=== PATIENT | male | born 1955 | race Caucasian/White ===

== ENCOUNTER 2020-05-10 04:33 | Inpatient (IN) ==
[2020-05-10] MEDS ORDERED: IOPAMIDOL 100 ML BOTTLE IV ONE (04:34)
[2020-05-10] MEDS ORDERED: 0.9 % SODIUM CHLORIDE 2,000 ML IV ONE (04:47)
[2020-05-10] MEDS ORDERED: ONDANSETRON 4 MG/2 ML VIAL IV ONE (04:48)
[2020-05-10 05:01] LABS: POC Blood Urea Nitrogen 16 mg/dl (8-23); POC CO2 24 mmol/L (22-30); POC Calcium, Ionized 1.03 mmol/L (1.16-1.32); POC Chloride 100 mmol/L (96-108); POC Glucose, Random 113 mg/dL (70-105); POC Potassium 4.1 mmol/L (3.3-5.1); POC Sodium 138 mmol/L (133-145)
[2020-05-10 05:42] LABS: Basophils # (Auto) 0.02 K/mcL (0.00-0.30); Basophils % (Auto) 0.2 % (0.0-2.0); Eosinophils # (Auto) 0.09 K/mcL (0.00-0.70); Eosinophils % (Auto) 0.9 % (0.0-7.0); Granulocytes % (Auto) 71.9 % (38.0-78.0); Hematocrit 50.1 % (40.1-51.0); Hemoglobin 16.6 g/dL (13.7-17.5); Lymphocytes % (Auto) 16.9 % (15.5-49.0); Mean Cell Volume 89.6 fL (80.0-100.0); Mean Corpuscular HGB Conc 33.1 g/dL (31.0-36.0); Mean Platelet Volume 10.4 fL (7.4-10.4); Monocytes # (Auto) 1.01 K/mcL (0.10-0.90); Monocytes % (Auto) 10.1 % (1.0-12.0); Platelet Count 206 K/mcL (140-440); RBC 5.59 M/mcL (4.63-6.08); Red Cell Distribution Width 14.6 % (11.5-14.5)
[2020-05-10 05:59] LABS: ALT/SGPT 51 U/l (0-40); AST/SGOT 68 U/l (0-37); Albumin 3.5 gm/dL (3.2-5.2); Albumin/Globulin Ratio 0.9 (1.0-2.3); Alkaline Phosphatase 125 U/L (39-117); Bilirubin,Total 1.7 mg/dL (0.0-1.0); Blood Urea Nitrogen 15 mg/dl (8-23); Calcium 8.9 mg/dl (8.6-10.4); Carbon Dioxide 27 mmol/L (22-30); Chloride 99 mmol/L (96-108); Globulin 3.9 gm/dL (2.2-3.7); Glomerular Filtration Rate 79; Glucose 113 mg/dL (70-105)
--- NOTE | 2020-05-10 08:19 | Cat Scan Report ---
History: Upper abdominal pain with elevated liver enzymes and bilirubin TECHNIQUE: The patient was imaged following intravenous but no oral contrast scanning during the portal venous phase from above the diaphragm to the mid SI joints. Sagittal and coronal reformats were created. The radiation exposure was limited using dose reduction technology. FINDINGS: The liver and spleen are normal in size and homogeneous. The gallbladder wall is thickened and there is mild generalized stranding of the surrounding fat. In the neck of the gallbladder there is a cluster of densely calcified stones. The overall size of this cluster is 2 x 3 cm. Superior normal in caliber. There is no evidence of mass or inflammation the pancreas. The adrenals are normal and symmetric. Within a calyx in the middle third of the right kidney there is a nonobstructing 1.5 x 3 mm stone. In the cortex laterally in the lower pole of left kidney there is a 1 x 2 mm nonobstructing stone. An exophytic 2.1 x 2.6 cm cyst is present laterally in the middle third of the right kidney. No solid mass is present in either kidney. The ureters are decompressed. The bowel gas pattern is normal. The appendix is noninflamed. There are scattered plaques along the torres normal caliber abdominal aorta and iliac arteries. Inferior vena cava is normal. No adenopathy or mass are present. There is no ascites. Patient has ankylosis across the SI joints bilaterally. 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 There are bridging osteophytes at multiple levels in the spine. 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 Ma was called with the results Interpreted and Authenticated by: Saad Hong 05/10/20
--- NOTE | 2020-05-10 08:20 | Ultrasound Report ---
History: Right upper quadrant pain and cholelithiasis seen on preceding CT scan FINDINGS: The gallbladder contains at least two moderate size calcified stones. The largest is 2 cm. There is some sludge within the lumen of the gallbladder. Gallbladder wall is thickened and measures up to 5 mm. The patient was nontender while scanning over the gallbladder. No para cholecystic fluid collection is present. Common bile duct ranges from 4 to 6.6 mm in diameter. No obvious stone is seen within the duct. The pancreas and liver are suboptimally visualized due to patient body habitus and bowel gas. No ascites is present. IMPRESSION: Cholelithiasis and thickened gallbladder wall which may be seen with acute or chronic cholecystitis Interpreted and Authenticated by: Saad Hong 05/10/20
--- NOTE | 2020-05-10 08:23 | Emergency Department Note ---
Abdominal Pain HPI General Chief Complaint: Abdominal Pain Stated Complaint: abd. pain Time Seen by Provider: 05/10/20 07:30 Mode of arrival: ambulatory History of Present Illness HPI Narrative: Narrative: 64-year old patient presenting to the [facility] emergency department with a chief complaint of abdominal pain. Patient reports the pain is acute. Patient has had symptoms for several days. Patient noting pain is cramping. Patient reporting pain is moderate to severe. Patient with exacerbating factors of nothing. Patient with ameliorating factors of nothing. Patient with associated symptoms of may be some nausea. Patient without associated symptoms of vomiting, diarrhea, decreased appetite, fever, blood in stool, hematemesis, constipation, dysuria, frequency, hematuria, weight loss, cough, shortness of breath, orthopnea, exertional component. He was seen 2 days ago for the abdominal pain at that time declined laboratories and radiological evaluation he simply wanted his symptoms controlled. He did follow-up with his PCP yesterday and had laxative added to his regimen. However these interventions did not get him lasting relief and he presents today willing to do labs x-rays whatever it takes to get this sorted out. Related Data Home Medications Medication Instructions Recorded Confirmed docusate sodium 100 mg PO BID 05/10/20 05/10/20 Previous Rx's Medication Instructions Recorded dicyclomine 20 mg PO QID #10 tab 05/08/20 simethicone 250 mg PO BID PRN #10 cap 05/08/20 Allergies Allergy/AdvReac Type Severity Reaction Status Date / Time No Known Drug Allergies Allergy Unverified 05/08/20 04:56 Review of Systems ROS ROS Narrative: Narrative: All systems ED: reviewed and negative except as stated. [facility] Narrative Patient History Narrative: Narrative: Medical/Surgical/Family History All Active Problems (Updated 05/10/20 @ 08:40 by Chele Ma MD) Abdominal pain (Acute) Intractable abdominal pain (Acute) Cholelithiasis (Acute) Social History Smoking Status: Current every day smoker Exam Narrative Narrative: Narrative:Vital signs are assessed for evidence of hemodynamic instability. General: Alert, interactive, appropriate Head: Atraumatic, normocephalic Eyes: Extraocular movements intact, sclera anicteric, no conjunctival injection Ears: Pinnae normal, no discharge Mouth: Oral mucosa moist, no acute swelling or evidence of infection Nares: No nasal discharge, patent bilaterally Neck: Trachea midline, full range of motion Chest: Symmetrical chest wall rise, breathing normally; nonlabored respirations Abdomen: Patient primarily tenderness to the , patient without exam suggestive of peritonitis, nondistended, normoactive bowel sounds, no masses, no hepatosplenomegaly, no rebound, and no guarding Cardiovascular: Patient with excellent perfusion to the extremities; without tachycardia/bradycardia Skin: Patient without area of erythema, patient is without rash, no ascending lymphangitis or lymphadenopathy Extremities: Full range of motion joints, no obvious deformities Neuro: Alert, oriented x3, cranial nerves II through XII grossly intact, patient without lateralizing findings such as weakness, or abnormal reflexes Psychiatric: Normal affect, normal mood Course Vital Signs Vital signs: Vital Signs Temperature 98.3 F 05/10/20 04:35 Pulse Rate 77 05/10/20 04:35 Respiratory Rate 18 05/10/20 04:35 Blood Pressure 139/84 05/10/20 04:35 Pulse Oximetry (%) 95 05/10/20 04:35 Temperature 98.3 F 05/10/20 04:35 Pulse Rate 74 05/10/20 07:49 Respiratory Rate 18 05/10/20 04:35 Blood Pressure 143/110 05/10/20 07:49 Pulse Oximetry (%) 95 05/10/20 07:49 MDM MDM Narrative Medical decision making narrative: Narrative:Initial work-up for this issue included consideration for the following laboratory evaluation CBC, CMP, lipase, as well as imaging. CT evaluation reveals concern for possible gallbladder disease, ultrasound confirms this as well as support from blood laboratories. Attempted to control pain primarily with morphine sulfate. Patient with normal white blood cell count afebrile with excellent vital signs do not suspect acute infected gallbladder. Patient with intractable pain. He has tried outpatient pain management for this issue without success. Lab Data Result diagrams: 05/10/20 04:55 05/10/20 04:55 Labs: Lab Results 05/10/20 05/10/20 Range/Units 04:55 04:55 WBC 10.0 (4.50-11.00) K/mcL RBC 5.59 (4.63-6.08) M/mcL Hgb 16.6 (13.7-17.5) g/dL Hct 50.1 (40.1-51.0) % POC Hct 53.0 (41.0-55.0) % MCV 89.6 (80.0-100.0) fL MCH 29.7 (26.0-34.0) pg MCHC 33.1 (31.0-36.0) g/dL RDW 14.6 H (11.5-14.5) % Plt Count 206 (140-440) K/mcL MPV 10.4 (7.4-10.4) fL Gran % 71.9 (38.0-78.0) % Lymph % (Auto) 16.9 (15.5-49.0) % [place] % (Auto) 10.1 (1.0-12.0) % Eos % (Auto) 0.9 (0.0-7.0) % Baso % (Auto) 0.2 (0.0-2.0) % Gran # 7.21 (1.80-8.00) K/mcL Lymph # (Auto) 1.70 (1.50-4.80) K/mcL [place] # (Auto) 1.01 H (0.10-0.90) K/mcL Eos # (Auto) 0.09 (0.00-0.70) K/mcL Baso # (Auto) 0.02 (0.00-0.30) K/mcL POC Sodium 138 (133-145) mmol/L Sodium 137 (133-145) mmol/L POC Potassium 4.1 (3.3-5.1) mmol/L Potassium 4.0 (3.3-5.1) mmol/L POC Chloride 100 (96-108) mmol/L Chloride 99 (96-108) mmol/L Carbon Dioxide 27 (22-30) mmol/L POC Total CO2 24 (22-30) mmol/L Anion Gap 11.0 (8-16) POC BUN 16 (8-23) mg/dl BUN 15 (8-23) mg/dl Creatinine 1.0 (0.7-1.2) mg/dl POC Creatinine 1.0 (0.7-1.2) mg/dl GFR Calculation 79 Glucose 113 H (70-105) mg/dL POC Glucose 113 H (70-105) mg/dL Calcium 8.9 (8.6-10.4) mg/dl POC WB Ioniz Calcium 1.03 L (1.16-1.32) mmol/L Total Bilirubin 1.7 H (0.0-1.0) mg/dL AST 68 H (0-37) U/l ALT 51 H (0-40) U/l Alkaline Phosphatase 125 H (39-117) U/L Total Protein 7.4 (5.9-8.4) gm/dL Albumin 3.5 (3.2-5.2) gm/dL Globulin 3.9 H (2.2-3.7) gm/dL Albumin/Globulin Ratio 0.9 L (1.0-2.3) Discharge Plan Patient/Caregiver Discharge Instructions Pt seen by BINDERY OPERATOR/PA only: No Clinical Impression: Intractable abdominal pain, Cholelithiasis Patient Disposition: Xfer As Outpt/Obs ([facility]) Condition: Undetermined Prescriptions: No Action dicyclomine 20 mg tablet 20 mg PO QID Qty: 10 RF: 0 simethicone 125 mg capsule 250 mg PO BID PRN (Reason: abdominal distention) Qty: 10 RF: 0 docusate sodium 100 mg Capsule 100 mg PO BID RF: 0
[2020-05-10] MEDS ORDERED: 0.9 % SODIUM CHLORIDE 1,000 ML IV ONE (08:25)
[2020-05-10] MEDS ORDERED: ONDANSETRON 4 MG/2 ML VIAL IV PRN (08:25)
[2020-05-10] MEDS: DOCUSATE SODIUM 100 MG CAPSULE PO SCH ×2 (10:59→20:20)
--- NOTE | 2020-05-10 14:44 | General Surg History&Physical ---
HPI History of Present Illness Patient information: Note initiated : 05/10/20 at 2:41 pm Service Date, if different from initiated Date: [] Patient: Flex Victoria a 64 y/o M admitted on 05/10/20 for Abd Pain. Chief Complaint: [] History of present illness: Mr. Victoria is a 64 year old M admitted acute cholecystitis with cholelithiasis. The patient presented to the emergency room initially on 08 May 2020. At that time he complained of several hour history of diffuse upper abdominal pain with nausea and vomiting. He refused to have labs or x-rays done and only wished to have pain medication. He left without having any diagnostic studies completed. He continued to have severe pain over the next 2 days and returned earlier this morning because of severe pain. Labs reveal mild elevation in liver transaminases and ultrasound confirmed c holelithiasis with cholecystitis. Patient is admitted. He will be treated with antibiotics and scheduled for laparoscopic cholecystectomy tomorrow morning. Review of Systems All systems: reviewed and no additional remarkable complaints except as stated EENT Ears: Present decreased hearing (bilateral neurosensory hearing loss) Cardiovascular Cardiovascular: Present pedal edema; Absent chest pain at rest, chest pain with activity and dyspnea on exertion Respiratory Respiratory: Absent dyspnea on exertion Gastrointestinal Gastrointestinal: Present as per HPI Genitourinary Genitourinary: urinary frequency and urinary urgency Musculoskeletal Musculoskeletal: Present arthralgias, back pain, limited range of motion, muscle cramps, neck pain and radiating pain into limb Integumentary Integumentary: Absent pruritus and swelling Neurological Neurological: Present abnormal gait and abnormal hearing Psychiatric Psychiatric: Present abnormal sleep pattern Hematologic/Lymphatic Hematologic/Lymphatic: Absent easy bleeding, easy bruising and lymphadenopathy Allergic/Immunologic Allergic/Immunologic: Absent tongue swelling, throat swelling, itchy eyes, uticaria, wheezing and lip swelling PFSH PFSH Social History smoking status: Current every day smoker MEDS/ALLERGIES Home Medications and Allergies Home Medications Medication Instructions Recorded Confirmed Type dicyclomine 20 mg PO QID #10 tab 05/08/20 05/10/20 Rx simethicone 250 mg PO BID PRN #10 cap 05/08/20 05/10/20 Rx docusate sodium 100 mg PO BID 05/10/20 05/10/20 History Allergies Allergy/AdvReac Type Severity Reaction Status Date / Time No Known Drug Allergies Allergy Unverified 05/08/20 04:56 Physical Examination Vital Signs Vital signs: Temp Pulse Resp BP Pulse Ox 98.4 F 55 L 14 143/79 93 05/10/20 12:00 05/10/20 12:00 05/10/20 12:00 05/10/20 12:00 05/10/20 12:00 General physical appearance General physical exam: well developed, well nourished, moderate pain and obese Eyes Eye exam: PERRL and normal ocular movement; negative icteric ENT ENT exam: normal pinna, normal nares and decreased hearing (bilateral severe hearing loss) Head Head exam IM: Present atraumatic, normal inspection and normocephalic Neck Neck exam: no masses, no bruits, trachea midline, no lymphadenopathy and no venous distension; negative deviated trachea Cardiovascular Cardiovascular exam IM: Present normal rate and rhythm, RRR, +S1 and +S2; Absent JVD Respiratory Respiratory exam: normal expansion, normal respiratory effort, clear to percussion and clear to auscultation Abdomen Abdomen: Present soft and tender (epigastric and right upper quadrant tenderness with guarding) Integumentary Integumentary: Present no growths and other (stasis dermatitis bilateral lower extremities) Neurologic Neurologic: Present normal coordination and normal sensation Musculoskeletal Musculoskeletal: Present other (assisted gait with front-wheeled walker) Psychiatric Psychiatric: Present oriented to time, oriented to person, oriented to place, speech is normal, memory intact and other Results Labs Result diagrams: 05/10/20 04:55 05/10/20 04:55 Labs: Abnormal lab results 05/10/20 05/10/20 Range/Units 04:55 04:55 RDW 14.6 H (11.5-14.5) % [place] # (Auto) 1.01 H (0.10-0.90) K/mcL Glucose 113 H (70-105) mg/dL POC Glucose 113 H (70-105) mg/dL POC WB Ioniz Calcium 1.03 L (1.16-1.32) mmol/L Total Bilirubin 1.7 H (0.0-1.0) mg/dL AST 68 H (0-37) U/l ALT 51 H (0-40) U/l Alkaline Phosphatase 125 H (39-117) U/L Globulin 3.9 H (2.2-3.7) gm/dL Albumin/Globulin Ratio 0.9 L (1.0-2.3) Diabetes panel 05/10/20 Range/Units 04:55 Sodium 137 (133-145) mmol/L Potassium 4.0 (3.3-5.1) mmol/L Chloride 99 (96-108) mmol/L Carbon Dioxide 27 (22-30) mmol/L BUN 15 (8-23) mg/dl Creatinine 1.0 (0.7-1.2) mg/dl Glucose 113 H (70-105) mg/dL Calcium 8.9 (8.6-10.4) mg/dl AST 68 H (0-37) U/l ALT 51 H (0-40) U/l Alkaline Phosphatase 125 H (39-117) U/L Total Protein 7.4 (5.9-8.4) gm/dL Albumin 3.5 (3.2-5.2) gm/dL Calcium panel 05/10/20 Range/Units 04:55 Calcium 8.9 (8.6-10.4) mg/dl Albumin 3.5 (3.2-5.2) gm/dL Pituitary panel 05/10/20 Range/Units 04:55 Sodium 137 (133-145) mmol/L Potassium 4.0 (3.3-5.1) mmol/L Chloride 99 (96-108) mmol/L Carbon Dioxide 27 (22-30) mmol/L BUN 15 (8-23) mg/dl Creatinine 1.0 (0.7-1.2) mg/dl Glucose 113 H (70-105) mg/dL Calcium 8.9 (8.6-10.4) mg/dl Adrenal panel 05/10/20 Range/Units 04:55 Sodium 137 (133-145) mmol/L Potassium 4.0 (3.3-5.1) mmol/L Chloride 99 (96-108) mmol/L Carbon Dioxide 27 (22-30) mmol/L BUN 15 (8-23) mg/dl Creatinine 1.0 (0.7-1.2) mg/dl Glucose 113 H (70-105) mg/dL Calcium 8.9 (8.6-10.4) mg/dl Total Bilirubin 1.7 H (0.0-1.0) mg/dL AST 68 H (0-37) U/l ALT 51 H (0-40) U/l Alkaline Phosphatase 125 H (39-117) U/L Total Protein 7.4 (5.9-8.4) gm/dL Albumin 3.5 (3.2-5.2) gm/dL All other labs normal. A/P Assessment and plan (1) Cholelithiasis with cholecystitis without obstruction: Status: Acute Narrative A/P Narrative: patient is counseled for laparoscopic cholecystectomy. This will be performed tomorrow. He will be on antibiotics tonight. Time Spent With Patient Time: Total time spent is greater than 50% in coordination of care (as documente d) at patient's floor/unit and/or counseling patient:
[2020-05-10] MEDS ORDERED: oxyCODONE HCL 5 MG TABLET PO PRN (15:30)
[2020-05-10] MEDS: 0.9 % SODIUM CHLORIDE 1,000 ML IV SCH ×2 (15:30→23:26)
--- NOTE | 2020-05-10 15:54 | XRay Report ---
HISTORY: Preop for cholecystectomy FINDINGS: The lungs are clear. The heart, mediastinum, everardo and pleura are normal. No free intra-abdominal air is present. IMPRESSION: Normal chest. Interpreted and Authenticated by: Saad Hong 05/10/20
[2020-05-10 16:14] LABS: INR 1.1 (0.9-1.1); Prothrombin Time 14.4 sec (11.9-14.5)
[2020-05-10] MEDS: 0.9 % SODIUM CHLORIDE 10 ML SYRINGE IV SCH ×2 (16:33→20:20)
[2020-05-10] MEDS: PIPERACILLIN SODIUM/TAZOBACTAM 3.375 GM in DEXTROSE 5% IN WATER 50 ML IV SCH ×3 (17:02→23:25)
[2020-05-10 19:28] LABS: Appearance,Urine CLEAR; Color,Urine AMBER; Culture Indicated,Urine NO; Glucose,Urine (UA) NEGATIVE (NEG); Ictotest,Urine POS (NEG); Ketones,Urine 20 mg/dL (NEG); Leukocyte Esterase,Urine NEG /uL (NEG); Nitrate,Urine NEG (NEG); Protein,Urine NEG (NEG); Specific Gravity,Urine 1.034 (1.000-1.035); Urine Blood NEG mg/dL (<0.03)
[2020-05-10] MEDS: NICOTINE 21 MG PATCH TOPICAL SCH (20:09)
[2020-05-10] MEDS ORDERED: SENNOSIDES 1 TABLET PO SCH (21:00)
[2020-05-11] MEDS: PIPERACILLIN SODIUM/TAZOBACTAM 3.375 GM in DEXTROSE 5% IN WATER 50 ML IV SCH ×5 (05:24→23:26)
[2020-05-11] MEDS: 0.9 % SODIUM CHLORIDE 10 ML SYRINGE IV SCH ×3 (05:24→23:07)
[2020-05-11 06:52] LABS: Basophils # (Auto) 0.02 K/mcL (0.00-0.30); Basophils % (Auto) 0.2 % (0.0-2.0); Eosinophils # (Auto) 0.07 K/mcL (0.00-0.70); Eosinophils % (Auto) 0.8 % (0.0-7.0); Granulocytes % (Auto) 78.4 % (38.0-78.0); Hematocrit 49.4 % (40.1-51.0); Hemoglobin 15.9 g/dL (13.7-17.5); Lymphocytes # (Auto) 0.85 K/mcL (1.50-4.80); Lymphocytes % (Auto) 10.2 % (15.5-49.0); Mean Cell Volume 92.2 fL (80.0-100.0); Mean Corpuscular HGB Conc 32.2 g/dL (31.0-36.0); Monocytes # (Auto) 0.87 K/mcL (0.10-0.90); Monocytes % (Auto) 10.4 % (1.0-12.0); Platelet Count 197 K/mcL (140-440); RBC 5.36 M/mcL (4.63-6.08); Red Cell Distribution Width 14.6 % (11.5-14.5); WBC 8.3 K/mcL (4.50-11.00)
[2020-05-11] MEDS: 0.9 % SODIUM CHLORIDE 1,000 ML IV SCH (07:09)
[2020-05-11 07:18] LABS: Chloride 102 mmol/L (96-108)
[2020-05-11 07:22] LABS: ALT/SGPT 257 U/l (0-40); AST/SGOT 165 U/l (0-37); Albumin 2.9 gm/dL (3.2-5.2); Albumin/Globulin Ratio 0.7 (1.0-2.3); Alkaline Phosphatase 198 U/L (39-117); Bilirubin,Direct 4.7 mg/dL (0.0-0.3); Bilirubin,Total 5.1 mg/dL (0.0-1.0); Blood Urea Nitrogen 8 mg/dl (8-23); Calcium 8.6 mg/dl (8.6-10.4); Carbon Dioxide 25 mmol/L (22-30); Globulin 3.9 gm/dL (2.2-3.7); Glomerular Filtration Rate 94; Glucose 108 mg/dL (70-105); Lactate Dehydrogenase 248 U/L (94-250); Phosphorous 3.4 mg/dL (2.7-4.5); Triglycerides 66 mg/dl (<150); Uric Acid 3.2 mg/dL (2.5-8.0)
[2020-05-11] MEDS ORDERED: fentaNYL 100 MCG/2 ML VIAL IV ONE ×2 (09:08→11:09)
[2020-05-11] MEDS ORDERED: DEXAMETHASONE 10 MG/ML VIAL IV ONE (09:08)
[2020-05-11] MEDS ORDERED: SUCCINYLCHOLINE 20 MG/ML ML IV ONE (09:08)
[2020-05-11] MEDS ORDERED: ROCURONIUM 10 MG/ML ML IV ONE (09:08)
[2020-05-11] MEDS ORDERED: PROPOFOL 200 MG/20 ML VIAL IV ONE (09:08)
[2020-05-11] MEDS ORDERED: LIDOCAINE HCL/PF 100 MG/5 ML SYRINGE IV ONE (09:08)
[2020-05-11] MEDS ORDERED: KETAMINE 100 MG/ML ML IV ONE (09:08)
--- NOTE | 2020-05-11 10:52 | Brief Operative Note ---
Brief Operative Note Date of procedure: 05/11/20 Pre-op diagnosis: ACUTE CHOLECYSTITIS WITH CHOLELITHIASIS Post-op diagnosis: other (ACUTE CHOLECYSTITIS WITH CHOLELITHIASIS ) Procedure: LAPAROSCOPIC CHOLECYSTECTOMY Grafts/Implants: No (#10 TOM X1) Anesthesia: GETA Findings: ACUTE SEVERE INFLAMMATION OF GALLBLADDER Complications: none Surgeon: Diane Baca Estimated blood loss (cc): 50 Specimens Removed/Pathology: other (GALLBLADDER) Condition: stable Disposition: PACU
[2020-05-11] MEDS ORDERED: PROMETHAZINE 25 MG/ML VIAL IV PRN ×2 (10:56→12:18)
[2020-05-11] MEDS ORDERED: ONDANSETRON 4 MG/2 ML VIAL IV PRN ×2 (10:56→12:18)
[2020-05-11] MEDS ORDERED: LACTATED RINGERS 250 ML IV PRN (10:56)
[2020-05-11] MEDS ORDERED: MEPERIDINE 25 MG/ML SYRINGE IV PRN (10:56)
[2020-05-11] MEDS ORDERED: NALOXONE HCL 0.4 MG/ML VIAL IV PRN (10:56)
[2020-05-11] MEDS ORDERED: ACETAMINOPHEN 1,000 MG/100 ML BOTTLE IV ONE (10:56)
[2020-05-11] MEDS ORDERED: BENZOCAINE/MENTHOL 1 LOZENGE PO PRN (10:56)
[2020-05-11] MEDS ORDERED: diphenhydrAMINE 50 MG/ML VIAL IV PRN (10:56)
[2020-05-11] MEDS ORDERED: IPRATROPIUM/ALBUTEROL 3 ML AMPUL.NEB NEB PRN (10:56)
[2020-05-11] MEDS ORDERED: LACTATED RINGERS 1,000 ML IV SCH (11:00)
[2020-05-11] MEDS: fentaNYL 100 MCG/2 ML VIAL IV PRN ×2 (11:11→11:22)
[2020-05-11] MEDS: DOCUSATE SODIUM 100 MG CAPSULE PO SCH ×2 (11:25→19:54)
[2020-05-11] MEDS ORDERED: 0.9 % SODIUM CHLORIDE 1,000 ML IV SCH ×2 (12:18)
[2020-05-11] MEDS: oxyCODONE HCL 5 MG TABLET PO PRN ×2 (12:51→17:29)
[2020-05-11] MEDS: DICYCLOMINE 20 MG TABLET PO SCH ×3 (12:52→19:54)
[2020-05-11] MEDS: NICOTINE 21 MG PATCH TOPICAL SCH (14:09)
[2020-05-11] MEDS: SENNOSIDES 1 TABLET PO SCH (19:54)
[2020-05-11] MEDS ORDERED: DOCUSATE SODIUM 100 MG CAPSULE PO SCH (21:00)
[2020-05-11] MEDS ORDERED: ZOLPIDEM 5 MG TABLET PO PRN (21:00)
[2020-05-12] MEDS: oxyCODONE HCL 5 MG TABLET PO PRN ×4 (03:53→21:32)
[2020-05-12] MEDS: PIPERACILLIN SODIUM/TAZOBACTAM 3.375 GM in DEXTROSE 5% IN WATER 50 ML IV SCH ×4 (05:40→23:31)
[2020-05-12] MEDS: 0.9 % SODIUM CHLORIDE 10 ML SYRINGE IV SCH ×3 (05:41→23:31)
[2020-05-12 06:53] LABS: Basophils # (Auto) 0.02 K/mcL (0.00-0.30); Basophils % (Auto) 0.3 % (0.0-2.0); Eosinophils # (Auto) 0.25 K/mcL (0.00-0.70); Eosinophils % (Auto) 4.3 % (0.0-7.0); Granulocytes % (Auto) 63.6 % (38.0-78.0); Hematocrit 32.7 % (40.1-51.0); Hemoglobin 10.5 g/dL (13.7-17.5); Lymphocytes # (Auto) 1.41 K/mcL (1.50-4.80); Mean Cell Volume 87.2 fL (80.0-100.0); Mean Corpuscular HGB Conc 32.1 g/dL (31.0-36.0); Mean Platelet Volume 9.8 fL (7.4-10.4); Monocytes # (Auto) 0.46 K/mcL (0.10-0.90); Monocytes % (Auto) 7.8 % (1.0-12.0); Platelet Count 180 K/mcL (140-440); RBC 3.75 M/mcL (4.63-6.08); Red Cell Distribution Width 13.4 % (11.5-14.5); WBC 5.9 K/mcL (4.50-11.00)
[2020-05-12 07:11] LABS: Chloride 102 mmol/L (96-108)
[2020-05-12 07:14] LABS: ALT/SGPT 251 U/l (0-40); AST/SGOT 152 U/l (0-37); Albumin 2.5 gm/dL (3.2-5.2); Albumin/Globulin Ratio 0.7 (1.0-2.3); Alkaline Phosphatase 193 U/L (39-117); Bilirubin,Direct 4.9 mg/dL (0.0-0.3); Bilirubin,Total 5.2 mg/dL (0.0-1.0); Blood Urea Nitrogen 8 mg/dl (8-23); Calcium 8.3 mg/dl (8.6-10.4); Carbon Dioxide 26 mmol/L (22-30); Globulin 3.6 gm/dL (2.2-3.7); Glomerular Filtration Rate 94; Glucose 115 mg/dL (70-105); Lactate Dehydrogenase 220 U/L (94-250); Phosphorous 3.7 mg/dL (2.7-4.5); Triglycerides 65 mg/dl (<150); Uric Acid 2.8 mg/dL (2.5-8.0)
[2020-05-12] MEDS: DICYCLOMINE 20 MG TABLET PO SCH ×4 (09:18→21:32)
[2020-05-12] MEDS: NICOTINE 21 MG PATCH TOPICAL SCH (09:24)
[2020-05-12] MEDS: DOCUSATE SODIUM 100 MG CAPSULE PO SCH ×2 (09:24→21:31)
--- NOTE | 2020-05-12 12:31 | General Surgery Progress Note ---
SUBJECTIVE Subjective Patient information: Note initiated : 05/12/20 at 12:26 pm Service Date, if different from initiated Date: [] Patient: Flex Victoria 64 y/o M admitted on 05/10/20 for Abd Pain. Chief Complaint: [] Principal diagnosis: cholelithiasis with cholecystitis Interval history: patient states that he feels better. He has had continued bloody output through strain. He denies nausea but states that he feels constipated. He has been tolerating a regular diet. Bilirubin 5.2, SGOT 152, SGPT 251, alkaline phosphatase 193, white blood count 5.9, hemoglobin 10.5, hematocrit 32.7. Constitutional Vitals: Vital Signs Temp Pulse Resp BP Pulse Ox 98.1 F 65 16 130/74 92 05/12/20 12:00 05/12/20 12:00 05/12/20 12:00 05/12/20 12:00 05/12/20 12:00 Period Temp Pulse Resp BP Sys/Lo Pulse Ox Last 24 Hr 96.7 F-98.7 F 49-67 16-18 106-153/56-87 88-94 Intake and Output 05/11/20 05/12/20 05/12/20 21:59 05:59 13:59 Intake Total 1510 850 690 Output Total 875 450 645 Balance 635 400 45 Weight 308 lb 8 oz Intake & Output: Intake & Output 05/11/20 05/12/20 05/12/20 21:59 05:59 13:59 Intake Total 1510 850 690 Output Total 875 450 645 Balance 635 400 45 Weight 308 lb 8 oz Intake: IV 550 50 50 Sodium Chloride 0.9% 1,000 ml @ 500 125 mls/hr IV .Q8H KEENA Rx#: [id number] Zosyn 3.375 gm In Dextrose 5% 50 50 50 in Water 50 ml @ 100 mls/hr IV Q6H KEENA Rx#:[id number] Oral 960 800 640 Output: Drainage 100 50 45 Right Abdomen 100 50 45 Void Amount 775 400 600 Other: Meal Dinner Breakfast Percent of Meal Consumed 100% 100% Feeding Ability Independent Independent Urine Appearance Clear Urine Color Tea Colored Urine Odor Normal Head Head exam: Present atraumatic, normal inspection and normocephalic Eye Eye exam: Present EOMI and normal appearance Pupils: Present normal accommodation and PERRL ENT ENT exam: Present normal exam, normal external ear exam and normal oropharynx Neck Neck exam: Present full ROM and normal inspection; Absent tenderness and thyromegaly Respiratory Respiratory exam: Present normal respiratory exam and CTAB; Absent accessory muscle use, chest wall tenderness, rales, rhonchi and wheezes Cardiovascular Cardiovascular exam: Present normal rate and rhythm, RRR, +S1 and +S2; Absent bradycardia and JVD GI/Abdominal GI/Abdominal exam: Present normal bowel sounds, soft, distended (moderate abdominal distention; good active bowel sounds) and tenderness (tenderness around port sites; bloody drainage and TOM drain) Extremities Exam Extremities exam: Present full ROM and neurovascular intact; Absent pedal edema Back Exam Back exam: Present full ROM and normal inspection; Absent muscle spasm, paraspinal tenderness and tenderness Neurological Exam Neurological exam: Present abnormal gait, alert, CN II-XII intact, normal gait, oriented X3 and reflexes normal Psychiatric Psychiatric exam: Present normal affect and normal mood Skin Skin exam: Present normal color A/P Assessment and plan (1) Cholelithiasis with cholecystitis without obstruction: Status: Acute Narrative A/P Narrative: patient is stable except for persistently elevated bilirubin. His bilirubin was 5.1 preoperatively and is now 5.2. The SGOT and SGPT are decreased. Patient is advised to be observed overnight and check labs in the morning before considering discharge home. Time Spent With Patient Time: Total time spent is greater than 50% in coordination of care (as documented) at patient's floor/unit and/or counseling patient:
[2020-05-12] MEDS: MAGNESIUM HYDROXIDE 30 ML ORAL.SUSP PO SCH ×2 (12:53→18:01)
[2020-05-12] MEDS: SENNOSIDES 1 TABLET PO SCH (21:32)
[2020-05-13] MEDS: oxyCODONE HCL 5 MG TABLET PO PRN ×3 (02:08→20:28)
[2020-05-13] MEDS: PIPERACILLIN SODIUM/TAZOBACTAM 3.375 GM in DEXTROSE 5% IN WATER 50 ML IV SCH ×4 (05:53→23:35)
[2020-05-13] MEDS: 0.9 % SODIUM CHLORIDE 10 ML SYRINGE IV SCH ×3 (05:53→23:36)
[2020-05-13 06:31] LABS: Basophils # (Auto) 0.02 K/mcL (0.00-0.30); Basophils % (Auto) 0.3 % (0.0-2.0); Eosinophils # (Auto) 0.07 K/mcL (0.00-0.70); Granulocytes % (Auto) 72.1 % (38.0-78.0); Hematocrit 43.6 % (40.1-51.0); Hemoglobin 13.9 g/dL (13.7-17.5); Lymphocytes # (Auto) 1.13 K/mcL (1.50-4.80); Lymphocytes % (Auto) 16.5 % (15.5-49.0); Mean Cell Volume 92.2 fL (80.0-100.0); Mean Corpuscular HGB Conc 31.9 g/dL (31.0-36.0); Mean Platelet Volume 10.2 fL (7.4-10.4); Monocytes # (Auto) 0.69 K/mcL (0.10-0.90); Monocytes % (Auto) 10.1 % (1.0-12.0); Platelet Count 202 K/mcL (140-440); RBC 4.73 M/mcL (4.63-6.08); WBC 6.8 K/mcL (4.50-11.00)
[2020-05-13 07:01] LABS: Chloride 99 mmol/L (96-108)
[2020-05-13 07:02] LABS: Lactate Dehydrogenase 186 U/L (94-250)
[2020-05-13 07:04] LABS: ALT/SGPT 251 U/l (0-40); AST/SGOT 119 U/l (0-37); Albumin 2.6 gm/dL (3.2-5.2); Albumin/Globulin Ratio 0.8 (1.0-2.3); Alkaline Phosphatase 198 U/L (39-117); Bilirubin,Direct 4.6 mg/dL (0.0-0.3); Bilirubin,Total 5.1 mg/dL (0.0-1.0); Blood Urea Nitrogen 10 mg/dl (8-23); Calcium 8.2 mg/dl (8.6-10.4); Carbon Dioxide 28 mmol/L (22-30); Globulin 3.4 gm/dL (2.2-3.7); Glomerular Filtration Rate 94; Glucose 104 mg/dL (70-105); Phosphorous 2.8 mg/dL (2.7-4.5); Triglycerides 98 mg/dl (<150); Uric Acid 2.8 mg/dL (2.5-8.0)
[2020-05-13] MEDS: DOCUSATE SODIUM 100 MG CAPSULE PO SCH ×2 (08:47→20:28)
[2020-05-13] MEDS: DICYCLOMINE 20 MG TABLET PO SCH ×4 (08:47→20:28)
[2020-05-13] MEDS: NICOTINE 21 MG PATCH TOPICAL SCH (11:13)
[2020-05-13] MEDS: SIMETHICONE 80 MG TAB.CHEW CHEWED PRN (11:13)
[2020-05-13] MEDS: MAGNESIUM HYDROXIDE 30 ML ORAL.SUSP PO SCH ×2 (11:38→14:22)
--- NOTE | 2020-05-13 13:15 | General Surgery Progress Note ---
SUBJECTIVE Subjective Patient information: Note initiated : 05/13/20 at 1:14 pm Service Date, if different from initiated Date: [] Patient: Flex Victoria 64 y/o M admitted on 05/12/20 for Abd Pain. Chief Complaint: [] Principal diagnosis: cholelithiasis with cholecystitis Interval history: patient states that he feels better however he appears to be more clinically jaundiced than preoperatively. Bilirubin today is 5.2 whereas it was 1.7 prior to surgery. Discussed possibility of getting an MRCP. He has elevation of his transaminases which suggests common bile duct stone. The drainage IN his TOM remains bloody but the volume is less. No complaint of nausea. Constitutional Vitals: Vital Signs Temp Pulse Resp BP Pulse Ox 98.3 F 71 20 125/74 92 05/13/20 12:00 05/13/20 12:00 05/13/20 12:00 05/13/20 12:00 05/13/20 12:00 Period Temp Pulse Resp BP Sys/Lo Pulse Ox Last 24 Hr 97.7 F-98.5 F 56-71 16-22 111-126/64-74 90-93 Intake and Output 05/12/20 05/13/20 05/13/20 21:59 05:59 13:59 Intake Total 250 350 290 Output Total 640 195 200 Balance -390 155 90 Weight 312 lb 8 oz 312 lb 8 oz Patient Weight 05/14/20 05:59 Weight 312 lb 8 oz Intake & Output: Intake & Output 05/12/20 05/13/20 05/13/20 21:59 05:59 13:59 Intake Total 250 350 290 Output Total 640 195 200 Balance -390 155 90 Weight 312 lb 8 oz 312 lb 8 oz Intake: IV 50 50 50 Zosyn 3.375 gm In Dextrose 5% 50 50 50 in Water 50 ml @ 100 mls/hr IV Q6H COUNT INCLUDES THE [facility] Rx#:[id number] Oral 200 300 240 Output: Drainage 45 45 Right Abdomen 45 45 Drainage 20 Right Abdomen 20 Void Amount 575 150 200 Other: Meal Breakfast Percent of Meal Consumed 100% Feeding Ability Assist with Tray Set Up Urine Appearance Clear Clear Clear Urine Color [place] Dark [place] # Voids 1 Head Head exam: Present atraumatic, normal inspection and normocephalic Eye Eye exam: Present EOMI, normal appearance and scleral icterus Pupils: Present normal accommodation and PERRL ENT ENT exam: Present normal exam, normal external ear exam and normal oropharynx Neck Neck exam: Present full ROM; Absent tenderness Respiratory Respiratory exam: Present rhonchi and wheezes; Absent rales Cardiovascular Cardiovascular exam: Present normal rate and rhythm, RRR, +S1 and +S2; Absent bradycardia and JVD GI/Abdominal GI/Abdominal exam: Present normal bowel sounds, soft, distended (moderate abdominal distention; good active bowel sounds) and tenderness (tenderness around port sites; bloody drainage and TOM drain) Extremities Exam Extremities exam: Present full ROM, tenderness and neurovascular intact; Absent pedal edema Back Exam Back exam: Present CVA tenderness (R), muscle spasm and paraspinal tenderness Psychiatric Psychiatric exam: Present normal affect and normal mood Skin Skin exam: Present normal color A/P Assessment and plan (1) Cholelithiasis with cholecystitis without obstruction: Status: Acute Qualifiers: Cholelithiasis location: gallbladder Cholecystitis acuity: acute and chronic Qualified Code(s): K80.12 - Calculus of gallbladder with acute and chronic cholecystitis without obstruction (2) Common bile duct stone: Status: Acute Comment: patient will be scheduled for MRCP Narrative A/P Narrative: MRCP to rule out common bile duct stone Time Spent With Patient Time: Total time spent is greater than 50% in coordination of care (as documented) at patient's floor/unit and/or counseling patient:
[2020-05-13] MEDS ORDERED: LORazepam 2 MG/ML VIAL IV ONE (13:18)
--- NOTE | 2020-05-13 18:33 | XRay Report ---
HISTORY: Screening for metal in the orbits before and MRI FINDINGS: There are no radiopaque foreign bodies in or around the orbits. The paranasal sinuses are clear. There are metal dental implants and a metal dental bridge in the mandible.. IMPRESSION: Normal exam Interpreted and Authenticated by: Saad Hong 05/13/20
[2020-05-13] MEDS: POLYETHYLENE GLYCOL 3350 17 GM PACKET PO SCH ×2 (20:28→23:35)
[2020-05-13] MEDS: SENNOSIDES 1 TABLET PO SCH (20:28)
[2020-05-14] MEDS: POLYETHYLENE GLYCOL 3350 17 GM PACKET PO SCH ×4 (03:53→17:15)
[2020-05-14] MEDS: 0.9 % SODIUM CHLORIDE 10 ML SYRINGE IV SCH ×3 (05:52→23:34)
[2020-05-14] MEDS: PIPERACILLIN SODIUM/TAZOBACTAM 3.375 GM in DEXTROSE 5% IN WATER 50 ML IV SCH ×4 (05:52→23:34)
[2020-05-14 06:34] LABS: Basophils # (Auto) 0.01 K/mcL (0.00-0.30); Basophils % (Auto) 0.2 % (0.0-2.0); Eosinophils # (Auto) 0.08 K/mcL (0.00-0.70); Eosinophils % (Auto) 1.6 % (0.0-7.0); Granulocytes % (Auto) 70.8 % (38.0-78.0); Hematocrit 44.7 % (40.1-51.0); Hemoglobin 14.2 g/dL (13.7-17.5); Lymphocytes # (Auto) 0.79 K/mcL (1.50-4.80); Lymphocytes % (Auto) 16.3 % (15.5-49.0); Mean Cell Volume 92.7 fL (80.0-100.0); Mean Corpuscular HGB Conc 31.8 g/dL (31.0-36.0); Mean Platelet Volume 10.2 fL (7.4-10.4); Monocytes # (Auto) 0.54 K/mcL (0.10-0.90); Monocytes % (Auto) 11.1 % (1.0-12.0); Platelet Count 194 K/mcL (140-440); RBC 4.82 M/mcL (4.63-6.08); Red Cell Distribution Width 15.3 % (11.5-14.5); WBC 4.9 K/mcL (4.50-11.00)
[2020-05-14 06:47] LABS: Chloride 98 mmol/L (96-108)
[2020-05-14 06:49] LABS: ALT/SGPT 210 U/l (0-40); AST/SGOT 77 U/l (0-37); Albumin 2.6 gm/dL (3.2-5.2); Albumin/Globulin Ratio 0.7 (1.0-2.3); Alkaline Phosphatase 205 U/L (39-117); Bilirubin,Direct 5.8 mg/dL (0.0-0.3); Bilirubin,Total 6.3 mg/dL (0.0-1.0); Blood Urea Nitrogen 6 mg/dl (8-23); Calcium 8.2 mg/dl (8.6-10.4); Carbon Dioxide 30 mmol/L (22-30); Globulin 3.5 gm/dL (2.2-3.7); Glomerular Filtration Rate 100; Glucose 111 mg/dL (70-105); Lactate Dehydrogenase 181 U/L (94-250); Phosphorous 3.8 mg/dL (2.7-4.5); Triglycerides 119 mg/dl (<150); Uric Acid 2.4 mg/dL (2.5-8.0)
[2020-05-14] MEDS: DOCUSATE SODIUM 100 MG CAPSULE PO SCH ×2 (09:39→21:02)
[2020-05-14] MEDS: DICYCLOMINE 20 MG TABLET PO SCH ×4 (09:39→21:03)
[2020-05-14] MEDS: NICOTINE 21 MG PATCH TOPICAL SCH (09:40)
--- NOTE | 2020-05-14 10:30 | XRay Report ---
HISTORY: Constipation and status post recent cholecystectomy FINDINGS: There are clips in the gallbladder fossa. Adjacent to the clips there is a surgical drain. The Gregory-Márquez bulb overlies the mid abdomen. There is no evidence of fecal impaction or bowel obstruction. No air-fluid levels are seen on the supine study and there is no gross free intra-abdominal air. Arthritis is present in both hips and lumbar spine. IMPRESSION: Normal postsurgical changes and no acute abnormality Interpreted and Authenticated by: Saad Hong 05/14/20
--- NOTE | 2020-05-14 15:58 | General Surgery Progress Note ---
SUBJECTIVE Subjective Patient information: Note initiated : 05/14/20 at 3:50 pm Service Date, if different from initiated Date: [] Patient: Flex Victoria 64 y/o M admitted on 05/12/20 for Abd Pain. Chief Complaint: [] Principal diagnosis: cholelithiasis with cholecystitis Interval history: patient is complaining of right flank pain. He denies nausea. He is clinically more jaundiced and is bilirubin is 6.3. Alkaline phosphatase shows slight rise in 205. White blood count 4.9, hemoglobin 14.2, hematocrit 44.7. Plain films of the abdomen improved and he had a regular bowel movement. We could not get MRCP yesterday because of the patient's size. Discussed with him the need to have ERCP and we will contact Dr. Fishman on Saturday to have procedure performed. Constitutional Vitals: Vital Signs Temp Pulse Resp BP Pulse Ox 98.0 F 69 24 H 146/80 89 L 05/14/20 11:28 05/14/20 11:28 05/14/20 11:28 05/14/20 11:28 05/14/20 11:28 Period Temp Pulse Resp BP Sys/Lo Pulse Ox Last 24 Hr 97.2 F-98.5 F 61-71 20-26 126-160/71-87 88-96 Intake and Output 05/14/20 05/14/20 05/14/20 05:59 13:59 21:59 Intake Total 250 290 Output Total 451 600 350 Balance -201 -310 -350 Intake & Output: Intake & Output 05/14/20 05/14/20 05/14/20 05:59 13:59 21:59 Intake Total 250 290 Output Total 451 600 350 Balance -201 -310 -350 Intake: IV 50 50 Zosyn 3.375 gm In Dextrose 5% 50 50 in Water 50 ml @ 100 mls/hr IV Q6H [facility] Rx#:[id number] Oral 200 240 Output: Drainage 50 Right Abdomen 50 Void Amount 400 600 350 Urine/Stool Mix 1 Other: Meal Lunch Percent of Meal Consumed 100% Urine Appearance Clear Urine Color Tea Colored Tea Colored Urine Odor Strong Normal Stool Size Moderate Small Large Stool Color Brown Brown Brown Stool Consistency Formed Formed Dry and Hard Liquid # Voids 1 1 # Bowel Movements 1 1 1 Head Head exam: Present atraumatic, normal inspection and normocephalic Eye Eye exam: Present EOMI, normal appearance and scleral icterus Pupils: Present normal accommodation and PERRL ENT ENT exam: Present normal exam, normal external ear exam and normal oropharynx Neck Neck exam: Present full ROM; Absent tenderness Respiratory Respiratory exam: Present rhonchi and wheezes; Absent rales Cardiovascular Cardiovascular exam: Present normal rate and rhythm, RRR, +S1 and +S2; Absent bradycardia and JVD GI/Abdominal GI/Abdominal exam: Present normal bowel sounds, soft, distended (moderate abdominal distention; good active bowel sounds) and tenderness (tenderness around port sites; bloody drainage and TOM drain) Extremities Exam Extremities exam: Present full ROM, tenderness and neurovascular intact; Absent pedal edema Back Exam Back exam: Present full ROM and normal inspection; Absent muscle spasm, paraspinal tenderness and tenderness Neurological Exam Neurological exam: Present alert, altered, CN II-XII intact, motor sensory deficit, oriented X3 and reflexes normal Psychiatric Psychiatric exam: Present anxious, flat affect and normal mood Skin Skin exam: Present normal color A/P Assessment and plan (1) Cholelithiasis with cholecystitis without obstruction: Status: Acute (2) Common bile duct stone: Status: Acute Comment: patient will be scheduled for ERCP Time Spent With Patient Time: Total time spent is greater than 50% in coordination of care (as documented) at patient's floor/unit and/or counseling patient:
[2020-05-14] MEDS: SENNOSIDES 1 TABLET PO SCH (21:02)
[2020-05-15] MEDS: 0.9 % SODIUM CHLORIDE 10 ML SYRINGE IV SCH ×3 (05:51→20:51)
[2020-05-15] MEDS: PIPERACILLIN SODIUM/TAZOBACTAM 3.375 GM in DEXTROSE 5% IN WATER 50 ML IV SCH ×4 (05:51→23:23)
[2020-05-15] MEDS: NICOTINE 21 MG PATCH TOPICAL SCH (08:36)
[2020-05-15] MEDS: DOCUSATE SODIUM 100 MG CAPSULE PO SCH ×2 (08:36→20:51)
[2020-05-15] MEDS: DICYCLOMINE 20 MG TABLET PO SCH ×4 (08:36→20:51)
--- NOTE | 2020-05-15 13:27 | General Surgery Progress Note ---
SUBJECTIVE Subjective Patient information: Note initiated : 05/15/20 at 1:22 pm Service Date, if different from initiated Date: [] Patient: Flex Victoria 64 y/o M admitted on 05/12/20 for Abd Pain. Chief Complaint: [] Principal diagnosis: cholelithiasis with cholecystitis Interval history: patient complains of some back pain on the right side. He has poor appetite. He appears clinically more jaundiced but is afebrile. Discussed with him the need to have ERCP and hopefully that can be done tomorrow. Will check labs in the photograph editor Constitutional Vitals: Vital Signs Temp Pulse Resp BP Pulse Ox 98.4 F 68 24 H 129/72 93 05/15/20 08:00 05/15/20 08:00 05/15/20 08:00 05/15/20 08:00 05/15/20 08:00 Period Temp Pulse Resp BP Sys/Lo Pulse Ox Last 24 Hr 97.7 F-98.6 F 67-73 16-24 129-143/71-80 93-94 Intake and Output 05/14/20 05/15/20 05/15/20 21:59 05:59 13:59 Intake Total 410 350 50 Output Total 1775 965 475 Balance -1365 -615 -425 Weight 306 lb 14.4 oz Intake & Output: Intake & Output 05/14/20 05/15/20 05/15/20 21:59 05:59 13:59 Intake Total 410 350 50 Output Total 1775 965 475 Balance -1365 -615 -425 Weight 306 lb 14.4 oz Intake: IV 50 50 50 Zosyn 3.375 gm In Dextrose 5% 50 50 50 in Water 50 ml @ 100 mls/hr IV Q6H [facility] Rx#:[id number] Oral 360 300 Output: Drainage 40 Right Abdomen 40 Drainage 50 Right Abdomen 50 Void Amount 1725 925 475 Other: Meal Dinner Percent of Meal Consumed 100% Feeding Ability Independent Urine Appearance Clear Clear Clear Urine Color Dark Yellow Dark Yellow Gates Stool Size Large Stool Color Brown Stool Consistency Dry and Hard # Bowel Movements 1 Head Head exam: Present atraumatic, normal inspection and normocephalic Eye Eye exam: Present EOMI, normal appearance and scleral icterus Pupils: Present normal accommodation and PERRL ENT ENT exam: Present normal exam, normal external ear exam and normal oropharynx Neck Neck exam: Present full ROM; Absent tenderness Respiratory Respiratory exam: Present rhonchi and wheezes; Absent rales Cardiovascular Cardiovascular exam: Present normal rate and rhythm, RRR, +S1 and +S2; Absent bradycardia and JVD GI/Abdominal GI/Abdominal exam: Present normal bowel sounds, soft, distended (moderate abdominal distention; good active bowel sounds) and tenderness (tenderness around port sites; bloody drainage and TOM drain) Extremities Exam Extremities exam: Present full ROM, tenderness and neurovascular intact; Absent pedal edema Back Exam Back exam: Present CVA tenderness (R), muscle spasm and paraspinal tenderness Neurological Exam Neurological exam: Present alert, CN II-XII intact, normal gait, oriented X3 and reflexes normal Psychiatric Psychiatric exam: Present normal affect and normal mood Skin Skin exam: Present normal color A/P Assessment and plan (1) Common bile duct stone: Status: Acute Comment: patient will be scheduled for ERCP (2) Cholelithiasis with cholecystitis without obstruction: Status: Acute Narrative A/P Narrative: will get consult from Dr. Mcdaniels office tomorrow. Hopefully he can do an ERCP within the next day or so. Time Spent With Patient Time: Total time spent is greater than 50% in coordination of care (as documented) at patient's floor/unit and/or counseling patient:
[2020-05-15] MEDS: SENNOSIDES 1 TABLET PO SCH (20:51)
[2020-05-15] MEDS: SIMETHICONE 80 MG TAB.CHEW CHEWED PRN (23:23)
[2020-05-16] MEDS: PIPERACILLIN SODIUM/TAZOBACTAM 3.375 GM in DEXTROSE 5% IN WATER 50 ML IV SCH ×2 (05:30→11:08)
[2020-05-16] MEDS: 0.9 % SODIUM CHLORIDE 10 ML SYRINGE IV SCH (05:31)
[2020-05-16 06:47] LABS: Chloride 101 mmol/L (96-108)
[2020-05-16 06:54] LABS: ALT/SGPT 171 U/l (0-40); AST/SGOT 80 U/l (0-37); Albumin 2.9 gm/dL (3.2-5.2); Albumin/Globulin Ratio 0.8 (1.0-2.3); Alkaline Phosphatase 212 U/L (39-117); Bilirubin,Direct 7.7 mg/dL (0.0-0.3); Bilirubin,Total 8.9 mg/dL (0.0-1.0); Blood Urea Nitrogen 8 mg/dl (8-23); Calcium 8.5 mg/dl (8.6-10.4); Carbon Dioxide 28 mmol/L (22-30); Globulin 3.5 gm/dL (2.2-3.7); Glomerular Filtration Rate 79; Glucose 104 mg/dL (70-105); Lactate Dehydrogenase 201 U/L (94-250); Phosphorous 3.4 mg/dL (2.7-4.5); Triglycerides 186 mg/dl (<150)
[2020-05-16] MEDS: DOCUSATE SODIUM 100 MG CAPSULE PO SCH (08:14)
[2020-05-16] MEDS: DICYCLOMINE 20 MG TABLET PO SCH ×2 (08:14→13:29)
--- NOTE | 2020-05-16 10:33 | Discharge Summary ---
Discharge Provider Provider Patient information: Note initiated : 05/16/20 at 10:23 am Service Date, if different from initiated Date: [] Patient: Flex Victoria 64 y/o M admitted on 05/12/20 for Abd Pain. Chief Complaint: [] Date of admission: 05/12/20 12:26 Discharge date: 05/16/20 Admitting clinician: Diane Baca Attending physician on admission: Diane Baca Consults: 05/10/20 08:18 Consult to Physician [CONS] Stat Comment: Consulting Provider: Diane Baca Reason For Exam: Physician to Consult Attending physician on discharge: Diane Baca Discharging clinician: Diane Baca COURSE Hospital Course Hospital course: 64-year-old male who presented on 10 May with acute abdominal pain and findings of acute cholecystitis with cholelithiasis. He had slight elevation of bilirubin at 1.7 and his transaminases were minimally elevated.. The patient underwent cholecystectomy on 11 May. He was found to have acute severe inflammation. The cystic duct was very inflamed and was not assessable to intraoperative cholangiogram. In the postop period, he was noted to have more jaundiced and his bilirubin increased to 5.2. He was treated and plans were made to have MRCP done but he was too large for our scanner. I elected to wait until our telegraph editor arrives today however he missed his flights and will not be here until possibly tomorrow or later. Patient bilirubin is now over 8. He is afebrile and does not have leukocytosis but he needs to have ERCP on on a more urgent basis. Arrangements have been made for him to be taken care of at the [facility] [place] for ERCP. Discharge diagnosis: choledocholithiasis Secondary discharge diagnosis: acute cholecystitis with cholelithiasis Reason for admission: acute cholecystitis with cholelithiasis Procedures: laparoscopic cholecystectomy Complications: retained common bile duct stone Time Spent with Patient Time attestation: Total time spent providing and/or coordinating discharge services: Physical Examination Vital Signs Vital signs: Temp Pulse Resp BP Pulse Ox 97.7 F 62 22 129/67 94 05/16/20 07:37 05/16/20 07:37 05/16/20 07:37 05/16/20 07:37 05/16/20 08:25 General physical appearance General physical exam: well developed, well nourished, moderate pain and obese Eyes Eye exam: PERRL, normal ocular movement and icteric (progressive severe scleral icterus) ENT ENT exam: normal pinna, normal nares and decreased hearing (bilateral severe hearing loss) Head Head exam IM: Present atraumatic, normal inspection and normocephalic Neck Neck exam: no masses, no bruits, trachea midline, no lymphadenopathy and no venous distension; negative deviated trachea Cardiovascular Cardiovascular exam IM: Present normal rate and rhythm, RRR, +S1 and +S2; Absent JVD Respiratory Respiratory exam: normal expansion, normal respiratory effort, clear to percussion and clear to auscultation Integumentary Integumentary: Present no growths and other (stasis dermatitis bilateral lower extremities) Neurologic Neurologic: Present normal coordination and normal sensation Musculoskeletal Musculoskeletal: Present other (assisted gait with front-wheeled walker) Psychiatric Psychiatric: Present oriented to time, oriented to person, oriented to place, speech is normal, memory intact and other Discharge Plan Patient/Caregiver Discharge Instructions Activity: ambulate only with your walker, increase activity as tolerated and wear oxygen at night Diet: NPO Instructions: Low Fat Diet (DC) Prescriptions: No Action dicyclomine 20 mg tablet 20 mg PO QID Qty: 10 RF: 0 simethicone 125 mg capsule 250 mg PO BID PRN (Reason: abdominal distention) Qty: 10 RF: 0 docusate sodium 100 mg Capsule 100 mg PO BID RF: 0 Follow Up Plan Follow up with: Diane Baca MD [Physician] - (make an appointment with the office for follow-up in 1 week) Patient Disposition: [facility] Care Plan Goals: patient will have endoscopic retrograde cholangiopancreatography and will be transferred home thereafter Assessment: patient is clinically stable without any evidence of infection or sepsis at this time Prognosis: Good Rehab Potential: Good I certify that the patient requires SNF services: Yes Overall status at discharge: patient is not back to baseline Discharge Orders: Discharge Order (Routine); Ordered 05/16/20 Ordered By: Diane Baca Pending Pending Pending: Resuscitation Status Full Code Diet Regular Diet Start Penny May 12 1233 Dicyclomine HCl (Dicyclomine) 20 mg PO QID [facility] Last Admin: 05/16/20 08:14 Dose: 20 mg Documented by: Admin: 05/15/20 20:51 Dose: 20 mg Documented by: Admin: 05/15/20 17:35 Dose: 20 mg Documented by: Admin: 05/15/20 12:23 Dose: 20 mg Documented by: Admin: 05/15/20 08:36 Dose: 20 mg Documented by: Admin: 05/14/20 21:03 Dose: 20 mg Documented by: Admin: 05/14/20 18:09 Dose: 20 mg Documented by: Admin: 05/14/20 12:50 Dose: 20 mg Documented by: Admin: 05/14/20 09:39 Dose: 20 mg Documented by: Admin: 05/13/20 20:28 Dose: 20 mg Documented by: Admin: 05/13/20 18:04 Dose: 20 mg Documented by: HATTIE Cosigned by: AHOOD Admin: 05/13/20 14:22 Dose: 20 mg Documented by: HATTIE Cosigned by: [email or web address] Admin: 05/13/20 08:47 Dose: 20 mg Documented by: HATTIE Cosigned by: [email or web address] Admin: 05/12/20 21:32 Dose: 20 mg Documented by: Admin: 05/12/20 18:02 Dose: 20 mg Documented by: Admin: 05/12/20 12:53 Dose: 20 mg Documented by: Admin: 05/12/20 09:18 Dose: 20 mg Documented by: Admin: 05/11/20 19:54 Dose: 20 mg Documented by: Admin: 05/11/20 17:30 Dose: 20 mg Documented by: Admin: 05/11/20 12:52 Dose: 20 mg Documented by: NEFTALI Docusate Sodium (Colace) 100 mg PO BID [facility] Last Admin: 05/16/20 08:14 Dose: 100 mg Documented by: Admin: 05/15/20 20:51 Dose: 100 mg Documented by: Admin: 05/15/20 08:36 Dose: 100 mg Documented by: Admin: 05/14/20 21:02 Dose: 100 mg Documented by: Admin: 05/14/20 09:39 Dose: 100 mg Documented by: Admin: 05/13/20 20:28 Dose: 100 mg Documented by: Admin: 05/13/20 08:47 Dose: 100 mg Documented by: HATTIE Cosigned by: [email or web address] Admin: 05/12/20 21:31 Dose: 100 mg Documented by: Admin: 05/12/20 09:24 Dose: 100 mg Documented by: Admin: 05/11/20 19:54 Dose: 100 mg Documented by: LISA Piperacillin Sod/Tazobactam (Sod 3.375 gm/ Dextrose) 50 mls @ 100 mls/hr IV Q6H [facility]; Protocol Last Admin: 05/16/20 05:30 Dose: 100 mls/hr Documented by: OBINSPOORNIMA Infusion: 05/15/20 23:53 Dose: 100 mls/hr Documented by: OBINSPOORNIMA Admin: 05/15/20 23:23 Dose: 100 mls/hr Documented by: Infusion: 05/15/20 18:06 Dose: 100 mls/hr Documented by: Admin: 05/15/20 17:36 Dose: 100 mls/hr Documented by: Infusion: 05/15/20 12:53 Dose: 0 mls/hr Documented by: Admin: 05/15/20 12:23 Dose: 100 mls/hr Documented by: Infusion: 05/15/20 06:21 Dose: 0 mls/hr Documented by: Admin: 05/15/20 05:51 Dose: 100 mls/hr Documented by: Infusion: 05/15/20 00:04 Dose: 100 mls/hr Documented by: Admin: 05/14/20 23:34 Dose: 100 mls/hr Documented by: Infusion: 05/14/20 18:39 Dose: 100 mls/hr Documented by: Admin: 05/14/20 18:09 Dose: 100 mls/hr Documented by: Infusion: 05/14/20 13:20 Dose: 0 mls/hr Documented by: Admin: 05/14/20 12:50 Dose: 100 mls/hr Documented by: Infusion: 05/14/20 06:22 Dose: 0 mls/hr Documented by: Admin: 05/14/20 05:52 Dose: 100 mls/hr Documented by: Infusion: 05/14/20 00:05 Dose: 100 mls/hr Documented by: Admin: 05/13/20 23:35 Dose: 100 mls/hr Documented by: Infusion: 05/13/20 18:33 Dose: 100 mls/hr Documented by: Admin: 05/13/20 18:03 Dose: 100 mls/hr Documented by: HATTIE Cosigned by: AHOOD Infusion: 05/13/20 12:10 Dose: 0 mls/hr Documented by: HATTIE Cosigned by: DMORGAN Admin: 05/13/20 11:38 Dose: 100 mls/hr Documented by: HATTIE Cosigned by: DMORGAN Infusion: 05/13/20 06:23 Dose: 100 mls/hr Documented by: HATTIE Cosigned by: DMORGAN Admin: 05/13/20 05:53 Dose: 100 mls/hr Documented by: Infusion: 05/13/20 00:01 Dose: 100 mls/hr Documented by: Admin: 05/12/20 23:31 Dose: 100 mls/hr Documented by: Infusion: 05/12/20 18:32 Dose: 100 mls/hr Documented by: Admin: 05/12/20 18:02 Dose: 100 mls/hr Documented by: Infusion: 05/12/20 13:18 Dose: 0 mls/hr Documented by: Admin: 05/12/20 12:48 Dose: 100 mls/hr Documented by: Infusion: 05/12/20 06:10 Dose: 0 mls/hr Documented by: Admin: 05/12/20 05:40 Dose: 100 mls/hr Documented by: Infusion: 05/11/20 23:56 Dose: 100 mls/hr Documented by: Admin: 05/11/20 23:26 Dose: 100 mls/hr Documented by: Infusion: 05/11/20 17:59 Dose: 100 mls/hr Documented by: Admin: 05/11/20 17:29 Dose: 100 mls/hr Documented by: Infusion: 05/11/20 13:20 Dose: 0 mls/hr Documented by: Admin: 05/11/20 12:50 Dose: 100 mls/hr Documented by: NEFTALI Morphine Sulfate (Morphine) 4 mg IV Q2HP PRN; Protocol PRN Reason: Per Pain Protocol Last Admin: 05/11/20 13:51 Dose: 4 mg Documented by: NEFTALI Nicotine (Nicoderm) 21 mg TOPICAL DAILY@1000 [facility] Last Admin: 05/15/20 08:36 Dose: 21 mg Documented by: Admin: 05/14/20 09:40 Dose: 21 mg Documented by: Admin: 05/13/20 11:13 Dose: 21 mg Documented by: HATTIE Cosigned by: YAYA Admin: 05/12/20 09:24 Dose: 21 mg Documented by: NEFTALI Oxycodone HCl (Roxicodone) 10 mg PO Q4HP PRN; Protocol PRN Reason: Per Pain Protocol Last Admin: 05/13/20 20:28 Dose: 10 mg Documented by: Admin: 05/13/20 08:48 Dose: 10 mg Documented by: [email or web address] Admin: 05/13/20 02:08 Dose: 10 mg Documented by: Admin: 05/12/20 21:32 Dose: 10 mg Documented by: Admin: 05/12/20 15:43 Dose: 10 mg Documented by: Admin: 05/12/20 09:18 Dose: 10 mg Documented by: Admin: 05/12/20 03:53 Dose: 10 mg Documented by: Admin: 05/11/20 17:29 Dose: 10 mg Documented by: Admin: 05/11/20 12:51 Dose: 10 mg Documented by: NEFTALI Sensuha (Senokot) 2 tab PO HS [facility] Last Admin: 05/15/20 20:51 Dose: 2 tab Documented by: Admin: 05/14/20 21:02 Dose: 2 tab Documented by: Admin: 05/13/20 20:28 Dose: 2 tab Documented by: Admin: 05/12/20 21:32 Dose: 2 tab Documented by: Admin: 05/11/20 19:54 Dose: 2 tab Documented by: LISA Simethicone (Mylicon) 240 mg CHEWED BIDP PRN PRN Reason: abdominal distention Last Admin: 05/15/20 23:23 Dose: 240 mg Documented by: Admin: 05/13/20 11:13 Dose: 240 mg Documented by: HATTIE Cosigned by: YAYA Sodium Chloride (Saline Flush) 10 ml IV Q8 [facility] Last Admin: 05/16/20 05:31 Dose: 10 ml Documented by: Admin: 05/15/20 20:51 Dose: 10 ml Documented by: Admin: 05/15/20 12:24 Dose: 10 ml Documented by: Admin: 05/15/20 05:51 Dose: 10 ml Documented by: Admin: 05/14/20 23:34 Dose: 10 ml Documented by: Admin: 05/14/20 12:56 Dose: 10 ml Documented by: Admin: 05/14/20 05:52 Dose: 10 ml Documented by: Admin: 05/13/20 23:36 Dose: 10 ml Documented by: Admin: 05/13/20 14:22 Dose: 10 ml Documented by: HATTIE Cosigned by: [email or web address] Admin: 05/13/20 05:53 Dose: 10 ml Documented by: Admin: 05/12/20 23:31 Dose: 10 ml Documented by: Admin: 05/12/20 15:44 Dose: 10 ml Documented by: Admin: 05/12/20 05:41 Dose: 10 ml Documented by: Admin: 05/11/20 23:07 Dose: 10 ml Documented by: Admin: 05/11/20 13:53 Dose: 10 ml Documented by: NEFTALI Shift Summary 05/16/20 03:41 Shift Summary by Meg Benítez Pt is A&Ox4 up with 4WW, gait belt and SBA. Using urinal to void. IV to left hand SL receiving Zosyn Q6hrs. Lap sites x4 with JPx1. Medicated x1 with Mylicon. Declines the need for pain medication. Pt uses O2 at 2L at HS. Remains jaundice with elevated bilirubin and bilirubin in urine. Pt made NPO for possible ERCP with Dr. Mckeon. Dr. Baca to do consultation this am. No official orders for NPO or ERCP with the exception of Dr. Braun progress note. Will update with verbal report. Selected Entries 05/15/20 15:36 05/15/20 20:00 05/15/20 23:30 Pulse Rate [Left Monitor Reading] 65 70 72 Respiratory Rate 22 16 18 Blood Pressure [Right Arm] 137/73 147/82 131/76 Laboratory Tests 05/10/20 05/12/20 05/13/20 18:45 05:40 05:25 WBC Hgb 10.5 L 13.9 Potassium Phosphorus Magnesium Total Bilirubin Direct Bilirubin Urine Bilirubin 4.0 A Urine Urobilinogen 4.0 A 05/14/20 05/14/20 05:30 05:30 WBC 4.9 Hgb 14.2 Potassium 4.3 Phosphorus 3.8 Magnesium 2.4 Total Bilirubin 6.3 H Direct Bilirubin 5.8 H Urine Bilirubin Urine Urobilinogen Initialized on 05/16/20 03:41 - END OF NOTE
[2020-05-16] MEDS: NICOTINE 21 MG PATCH TOPICAL SCH (11:05)
--- NOTE | 2020-05-20 09:51 | Surgical Pathology Report ---
HISTOLOGY SPECIMEN MICROSCOPIC DIAGNOSIS GALLBLADDER, CHOLECYSTECTOMY: -- PARTIALLY NECROTIZING ACUTE AND CHRONIC CHOLECYSTITIS. -- CHOLELITHIASIS. -- PERICYSTIC LYMPH NODE WITH REACTIVE LYMPHOID HYPERPLASIA. (DMT:sln) PROCEDURAL IMPRESSION Cholelithiasis with cholecystitis without obstruction. GROSS DESCRIPTION Received in formalin labeled gallbladder, is a purple-longo gallbladder with an overlying layer of fat that measures 9 x 4.4 x 2.7 cm. The duct has a 1.1 cm stapled margin. This is inked black. Near the duct there are two firmer longo nodules 0.3 and 0.7 cm. The specimen contains yellow soft tissue and gelatinous material. The mucosa is red and rough surfaced. The wall is 0.2 cm thick with up to 0.5 cm of attached longo fat. There is an area of possible perforation that measures 0.7 cm. Grossly there are no stones identified. Manager Filter sections submitted in three cassettes with area of possible perforation and mucinous material in A2-A3. (SCB:sln) Electronically Signed by: Aydin Puri M.D.
--- NOTE | 2020-06-15 12:18 | Operative Note ---
DATE OF OPERATION: 05/12/2020 PREOPERATIVE DIAGNOSIS: Acute and chronic cholecystitis. POSTOPERATIVE DIAGNOSIS: Acute and chronic cholecystitis with cholelithiasis. PROCEDURE: Laparoscopic cholecystectomy. SURGEON: Diane Baca M.D. FINDINGS: Acute severe inflammation of gallbladder. DESCRIPTION OF PROCEDURE: Under general anesthesia, patient's abdomen was prepped and draped in a sterile field. Supraumbilical incision was made. Veress needle was inserted uneventfully. Abdomen was insufflated with 3 liters of CO2. A 12 mm port was placed. Laparoscope was placed. There was acute severe inflammation with adherence of the omentum and colon to the gallbladder. Under videoscopic guidance a 12 mm port and two 5 mm ports were placed in the right subcostal region. Using blunt dissection and electrocautery, the inflamed omentum and the colon were dissected from the gallbladder until it could be accessed. The dome of the gallbladder was then grasped with a self-retaining grasper. The rest of the omentum was dissected until the gallbladder was fully exposed. It was decompressed with a Weck needle. It contained purulent bile. It was positioned. Cystic duct was dissected. The cystic duct was explored and because of its fragile state, I did not think it would be accessible to do a cholangiogram. It was therefore transected using Endo-FELIPE stapler, staying away from its junction with the common bile duct. Extra Hemoclips were placed to try to assure that there would be no leak. The cystic artery was clipped with four clips and divided. Using primarily blunt dissection, the gallbladder was from the hepatic bed. Hemostasis was achieved with electrocautery. The gallbladder was placed in an Endopouch and retrieved. Further irrigation was carried out. TOM drain was placed in the subhepatic space and brought out through the most lateral port site. CO2 was allowed to escape from the abdomen and the ports were removed. Fascia at the umbilicus was closed with 0 Vicryl. Other skin incisions were closed with trace. Drain was secured with 2-0 nylon. Tegaderm dressings were placed. The patient was awakened from anesthesia uneventfully, transferred to a bed and taken to the postanesthetic care unit in stable, satisfactory condition. LCS:reji Job ID: [id number] Doc ID: [id number] Diane Baca M.D.
== END 2020-05-16 14:33 | disposition short-term general hospital (02) | DRG 418 ==
LOC: MEDSUR 04:33 → ED 04:33 → MEDSUR 09:55
PROVIDERS: ADMIT Family Medicine Adult Medicine; ATTEND Family Medicine Adult Medicine